=== PATIENT | female | born 1975 | race Caucasian/White ===

== ENCOUNTER 2018-12-13 16:08 | Emergency (ER) | payer MEDICAID ==
[2018-12-13 17:05] LABS: ADD MAN DIFF? NO
[2018-12-13 17:08] LABS: WHITE BLOOD COUNT 8.9 10^3/ul (4.8-10.8)
[2018-12-13 17:08] LABS: BASOPHILS % 0.4 % (0.0-2.0); EOSINOPHILS # 0.2 10^3/ul (0.0-0.5); EOSINOPHILS % 1.8 % (0.0-7.0); HEMATOCRIT 36.8 % (37.0-47.0); HEMOGLOBIN 12.3 g/dl (12.0-16.0); LYMPHOCYTES % 22.9 % (15.0-51.0); MEAN CORPUSCULAR HEMOGLOBIN 31.2 pg (29.0-33.0); MEAN CORPUSCULAR HGB CONC 33.4 g/dl (32.0-37.0); MEAN CORPUSCULAR VOLUME 93.4 fl (82.0-101.0); MEAN PLATELET VOLUME 9.9 fl (7.4-10.4); MONOCYTE # 0.5 10^3/ul (0.3-0.9); MONOCYTES % 5.8 % (0.0-11.0); NEUTROPHIL # 6.1 10^3/ul (1.6-7.5); NEUTROPHILS % 68.9 % (39.0-77.0); PLATELET COUNT 242 10^3/UL (140-415); RED BLOOD COUNT 3.94 10^6/ul (4.20-5.40); RED CELL DISTRIBUTION WIDTH 12.2 % (11.5-14.5)
[2018-12-13] MEDS: MECLIZINE 12.5 MG TAB PO (17:19)
[2018-12-13 17:27] LABS: ANION GAP 8 (5-13); BLOOD UREA NITROGEN 11 mg/dl (7-20); CALCIUM 9.3 mg/dl (8.4-10.2); CARBON DIOXIDE 27 mmol/L (21-31); CHLORIDE 105 mmol/L (97-110); CREATININE 0.54 mg/dl (0.44-1.00); Estimated GFR > 60 mL/min (>60); GLUCOSE 106 mg/dl (70-220); POTASSIUM 3.9 mmol/L (3.5-5.1); SODIUM 140 mmol/L (135-144)
== END 2018-12-13 17:55 | disposition home or self-care (01) ==
LOC: E/R 16:08
DX: H81.10 Benign paroxysmal vertigo, unspecified ear (principal); N94.6 Dysmenorrhea, unspecified
CPT/HCPCS: 36415; 80048; 81025; 85025; 99283